=== PATIENT | female | born 1970 ===

== ENCOUNTER 2024-01-13 09:57 | Outpatient (REF) | payer MEDICARE, MEDICAID, SELFPAY ==
--- NOTE | 2024-01-14 09:56 | MHC.AU.AEV ---
Adult Audiological Evaluation: Pre-Central Auditory Processing Date of Visit: 01/13/24 Reason for Appointment: Referred for CAP testing by Debbie Blanton PA-C at [facility]. In note from [facility], evaluated in June 2023 due to one year history of diminished speech recognition. Hearing tested at that time which showed normal hearing in the right ear and mild high-frequency sensorineural hearing loss in the left ear. Due to reported difficulty of sometimes...misunderstand[ing] what people are saying to her, she was referred for CAP testing. Radha reported her biggest concern is that she sometimes mishears parts of conversations. However, when she turns her right ear towards speaker, she hears better. Noticed sudden difference between her ears 5-6 years ago, not evaluated at that time. Then 1.5 years ago, noticed increasing difficulty understanding speech. Often needs repetition even in quiet, one-on-one environments. Happens in both tribal language, Ethiopian and second language, Upper Sorbian. However, overall minimal perceived hearing handicap. No other otologic symptoms reported. Has hearing been tested previously?: Yes Previous Hearing Test Results: June 2023 at [facility]: Right Ear - Normal hearing; Left Ear - Mild high-frequency hearing loss Hearing Handicap Inventory Does a hearing problem cause you to feel embarrassed when meeting new people?: No Does a hearing problem cause you to feel frustrated when talking to members of your family?: Yes Do you have difficulty when someone speaks in a whisper?: No Do you feel handicapped by a hearing problem?: No Does a hearing problem cause you difficulty when visiting friends, relatives, or neighbors?: No Does a hearing problem cause you to attend christianity service services less often than you would like?: No Does a hearing problem cause you to have arguments with family members?: No Does a hearing problem cause you difficulty when listening to TV or radio?: No Do you feel that any difficult with your hearing limits or hampers your personal or social life?: No Does a hearing problem cause you difficulty when in a restaurants with relatives or friends?: No HHIE SCORE: 4 Based on HHIE score, patient has: No perceived hearing handicap Medical History: Medical History: Headache; Anxiety/Depression; Insomnia; Low back pains Medication List: Sumatriptan, Metoprolol, Pravastatin, Pregabalin, Tramadol, Baclofen, Doxepin, Zolpidem, Hydroxyzine, Linzess Otoscopy: Right Ear: Unremarkable Left Ear: Unremarkable Tympanometry: To assess integrity of the middle ear system Right Ear: Normal Middle Ear System (Type A) Left Ear: Normal Middle Ear System (Type A) Acoustic Reflexes: Ipsilateral Probe Right: Probe Left: 500 Hz: Present 500 Hz: Present 1000 Hz: Present 1000 Hz: Present 2000 Hz: Present 2000 Hz: Present 4000 Hz: Present 4000 Hz: Present Otoacoustic Emissions: Frequency Range: 1.5-12 kHz Right Ear: Present OAEs 1.5-11 kHz; Reduced OAE at 12 kHz Left Ear: Present OAEs 1.5-3, 5-10 kHz; Reduced/absent OAEs 4, 11-12 kHz Analysis: Present emissions suggest normal cochlear function; Reduced/Absent emissions suggest cochlear dysfunction Hearing Evaluation: Transducer(s): Insert Earphones; Method: Conventional Audiometry; Stimuli: Pure-Tones Right Ear: Normal hearing Left Ear:Normal hearing sloping to mild sensorineural hearing loss rising to normal hearing Speech Recognition Threshold (SRT): Method: Monitored Live Voice; Stimuli: Spondee Words Right Ear: 5 dB HL Left Ear: 5 dB HL Word Discrimination: Method: Recorded; Word Lists: W-22 Right Ear: 96% correct at 50 dB HL Left Ear: 72% correct at 50 dB HL; 88% correct at 60 dB HL Most Comfortable Level (MCL): Method: Monitored Live Voice; Stimuli: Connected Discourse Right Ear: 50 dB HL to speech Left Ear: 50 dB HL to speech Uncomfortable Loudness Level (UCL): Stimuli: Pure Tones Right Ear: 90, 90, 90, 95 dB HL at .5, 1, 2, 4 kHz, respectively Left Ear: 90, 90, 90, 95 dB HL at .5, 1, 2, 4 kHz, respectively QuickSIN: 8 dB SNR Loss - Moderate SNR Loss Central Auditory Processing Screening Auditory Continuous Performance Test (ACPT): The ACPT provides information regarding auditory attention. This screening test evaluates an individual's ability to listen to auditory stimuli over a prolonged period of time. The score is based on the number of times the patient does not respond to the target stimuli and/or responds to stimuli other than the target stimuli. A score outside normative levels indicates possible attention difficulties. Passed ACPT SCAN-3 for Adolescents & Adults (SCAN-3): This is a screening test to determine if a individual is at risk for an Auditory Processing Disorder. The screening evaluates three areas of auditory processing skills and is scored by an age-appropriate Pass/Fail criterion. It is comprised of three parts: Gap Detection, Auditory Figure-Ground, and Competing Words-Free Recall. ? Gap Detection: Passed Gap Detection ? Auditory Figure-Ground +0dB: Passed Auditory Figure-Ground ? Competing Words-Free Recall: Failed Competing Words-Free Recall ? Overall: Did not pass; Interpret with caution - Norms for patients up to 50 years old; patient is 53 years old and cannot rule out influence of left-sided hearing loss Interpretation of Results: Compared to the most recent evaluation: Hearing is stable. With left-sided hearing loss, asymmetric word recognition in quiet, and self report that turning head helps her hear better, a full Central Auditory Processing evaluation is not warranted at this time. Although Radha did not pass the SCAN-3 screener in the Competing Words-Free Recall subtest, most of the errors were in her left ear and therefore, the influence of her left-sided hearing loss cannot be ruled out. Recommendations: -Follow up with ENT for asymmetric hearing and speech discrimination. -Schedule Speech, Language, Cognition evaluation due to significant frequent response on Speech, Language, Cognition history table. -Discussed use of communication strategies and environmental controls (e.g., access to visual cues, [id number], minimize competing noises, attention/focus). -Consider trial with left-sided hearing aid pending medical clearance. Diagnosis: Primary Diagnosis: H90.42 SNHL Unilateral Left Side, W/Unrestricted Contralateral Hearing Signature: Provider: Rober Garcia, [facility]
== END 2024-01-13 09:58 | disposition home or self-care (01) ==
LOC: HO.SH 09:57
PROVIDERS: PCP Hospitalist; Visit Provider Physician Assistant
DX: Z01.118 Encounter for examination of ears and hearing with other abnormal findings (principal); H90.42 Sensorineural hearing loss, unilateral, left ear, with unrestricted hearing on the contralateral side
CPT/HCPCS: 92550; 92557; 92588; 92700